=== PATIENT | female | born 2000 | race Two or more races ===

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

== ENCOUNTER 2020-08-23 22:54 | Emergency (ER) | payer OTHER ==
[~2020-08-23] VITALS: Ht 160 cm; Wt 121.6 kg
[~2020-08-23 22:54] MED LIST changes: +INTESTINEX680 M1 PO; +ZANTAC150 MG PO
[2020-08-24] MEDS ORDERED: PYRIDIUM DS200 MG PO (02:29)
[2020-08-24] MEDS ORDERED: CEPHALEXIN500 M1 PO (02:29)
== END 2020-08-24 02:43 | disposition home or self-care (01) ==
LOC: ER 22:54
DX: N30.80 Other cystitis without hematuria (principal)

== ENCOUNTER 2023-05-10 08:08 | Emergency (ER) | payer OTHER ==
[~2023-05-10] VITALS: Ht 160 cm; Wt 97.5 kg
[~2023-05-10 08:08] MED LIST changes: +CEPHALEXIN500 M1 PO; +PYRIDIUM DS200 MG PO
[2023-05-10] MEDS ORDERED: 0.9 % SODIUM CHLORIDE 1,000 ML IV STA (09:12)
[2023-05-10] MEDS ORDERED: FAMOtidine 10 MG/ML (4ML VIAL) IV STA (09:12)
[2023-05-10] MEDS ORDERED: ONDANSETRON HCL 2 MG/ML VIAL IV ONE (09:15)
[2023-05-10 09:37] LABS: HEMATOCRIT 39.7 % (36.0-45.00); HEMOGLOBIN 13.3 g/dL (12.0-15.00); MEAN CELL VOLUME 85.5 fL (80.00-100.00); MEAN CORPUSCULAR HEMOGLOBIN 28.7 pg (27.00-32.0); MEAN CORPUSCULAR HGB CONC 33.6 g/dl (32.0-36.0); PLATELET COUNT 301 K/uL (150-450); RED BLOOD COUNT 4.65 M/uL (4.00-6.00); RED CELL DISTRIBUTION WIDTH 14.5 % (11.5-14.5)
[2023-05-10 09:52] LABS: URINE APPEARANCE Cloudy; URINE BILIRRUBIN Negative (NEGATIVE); URINE BLOOD Negative; URINE COLOR Dark Yellow; URINE GLUCOSE Negative (NEGATIVE); URINE LEUKOCYTE Small; URINE NITRATE Negative; URINE PROTEIN Trace (NEGATIVE)
[2023-05-10 09:53] LABS: URINE BACTERIA 3688.9 uL (0.0-1933); URINE EPITHELIAL CELLS 119.8 uL (0.0-38.8); URINE RBC 64.8 uL (0.0-20.8)
[2023-05-10 10:18] LABS: CALCIUM 9.3 mg/dL (8.5-10.1); CREATININE SERUM 0.64 mg/dL (0.55-1.02); GFR 116.04; POTASSIUM 4.1 mEq/L (3.5-5.1)
== END 2023-05-10 14:20 | disposition home or self-care (01) ==
LOC: ER
PROVIDERS: General Practice
DX: K52.89 Other specified noninfective gastroenteritis and colitis (principal)

== ENCOUNTER 2023-05-10 21:04 | Emergency (ER) | payer OTHER ==
[~2023-05-10] VITALS: Ht 160 cm; Wt 97.5 kg
[2023-05-10] MEDS ORDERED: FAMOTIDINE/PF 20 MG in 0.9 % SODIUM CHLORIDE 8 ML IV PUSH STA (22:27)
[2023-05-10] MEDS ORDERED: KETOROLAC TROMETHAMINE 30 MG VIAL IV ONE (22:30)
[2023-05-10] MEDS ORDERED: METHYLPREDNISOLONE SOD SUCC 125 MG VIAL IV ONE (22:30)
[2023-05-10] MEDS ORDERED: 0.9 % SODIUM CHLORIDE 1,000 ML IV SCH (22:30)
[2023-05-10] MEDS ORDERED: ONDANSETRON HCL 2 MG/ML VIAL IV ONE (22:30)
[2023-05-10 22:51] LABS: HEMATOCRIT 39.1 % (36.0-45.00); HEMOGLOBIN 13.1 g/dL (12.0-15.00); MEAN CELL VOLUME 85.4 fL (80.00-100.00); MEAN CORPUSCULAR HEMOGLOBIN 28.6 pg (27.00-32.0); MEAN CORPUSCULAR HGB CONC 33.5 g/dl (32.0-36.0); PLATELET COUNT 310 K/uL (150-450); RED BLOOD COUNT 4.58 M/uL (4.00-6.00); RED CELL DISTRIBUTION WIDTH 14.4 % (11.5-14.5)
[2023-05-10 23:27] LABS: ALBUMIN 3.7 gm/dL (3.4-5.0); BILIRUBIN TOTAL 1.29 mg/dL (0.3-1.2); CALCIUM 8.3 mg/dL (8.5-10.1); CREATININE SERUM 0.7 mg/dL (0.55-1.02); GFR 104.64; GLOBULINA 4.3 G/DL (2.4-3.5); POTASSIUM 3.99 mEq/L (3.5-5.1)
[2023-05-11] MEDS ORDERED: METOCLOPRAMIDE HCL 10 MG in DEXTROSE 5 % IN WATER 50 ML IV ONE (00:30)
[2023-05-11] MEDS ORDERED: METOCLOPRAMIDE HCL 5 MG/ML VIAL IM STA (00:32)
== END 2023-05-11 01:00 | disposition home or self-care (01) ==
LOC: ER 21:04
PROVIDERS: General Practice
DX: K52.9 Noninfective gastroenteritis and colitis, unspecified (principal)

== ENCOUNTER 2023-06-29 10:28 | Emergency (ER) | payer OTHER ==
[~2023-06-29] VITALS: Ht 162.6 cm; Wt 98.9 kg
[2023-06-29] MEDS ORDERED: ZOFRAN8 MG PO (10:46)
[2023-06-29] MEDS ORDERED: RELAFEN DS1000 MG PO (10:46)
[2023-06-29] MEDS ORDERED: FAMOTIDINE10 MG PO (10:47)
[2023-06-29 11:32] LABS: HEMATOCRIT 40.8 % (36.0-45.00); HEMOGLOBIN 13.5 g/dL (12.0-15.00); MEAN CELL VOLUME 82.2 fL (80.00-100.00); MEAN CORPUSCULAR HEMOGLOBIN 27.2 pg (27.00-32.0); MEAN CORPUSCULAR HGB CONC 33.1 g/dl (32.0-36.0); PLATELET COUNT 220 K/uL (150-450); RED BLOOD COUNT 4.96 M/uL (4.00-6.00); RED CELL DISTRIBUTION WIDTH 14.7 % (11.5-14.5)
[2023-06-29 11:57] LABS: INR 1.06; PARTIAL THROMBOPLASTIN TIME 35.3 SECONDS (22.0-34.0); PROTHROMBIN TIME 11.1 SECONDS (9.0-11.5)
[2023-06-29 12:39] LABS: CALCIUM 8.6 mg/dL (8.5-10.1); CREATININE SERUM 0.74 mg/dL (0.55-1.02); GFR 98.14; POTASSIUM 3.71 mEq/L (3.5-5.1)
[2023-06-29 13:18] LABS: URINE APPEARANCE Clear; URINE BILIRRUBIN Negative (NEGATIVE); URINE BLOOD Moderate; URINE COLOR Dark Yellow; URINE GLUCOSE Negative (NEGATIVE); URINE LEUKOCYTE Small; URINE NITRATE Negative; URINE PROTEIN Negative (NEGATIVE)
[2023-06-29 13:22] LABS: URINE BACTERIA 1665.4 uL (0.0-1933); URINE EPITHELIAL CELLS 52.5 uL (0.0-38.8); URINE RBC 25.5 uL (0.0-20.8)
== END 2023-06-29 13:40 | disposition home or self-care (01) ==
LOC: ER 10:28
PROVIDERS: General Practice
DX: O20.8 Other hemorrhage in early pregnancy (principal); Z3A.01 Less than 8 weeks gestation of pregnancy